=== PATIENT | male | born 1935 | race Caucasian/White ===

== ENCOUNTER 2020-11-30 05:31 | Emergency (ER) | payer MEDICARE ==
[~2020-11-30] VITALS: Ht 185.4 cm; Wt 113.4 kg
[2020-11-30] MEDS ORDERED: ONDANSETRON HCL INJ 2MG/ML 2ML 2 MG/ML VIAL IV STA (05:35)
[2020-11-30] MEDS ORDERED: FAMOTIDINE 20 MG/2 ML VIAL IV STA (05:35)
[2020-11-30] MEDS ORDERED: SODIUM CHLORIDE 0.9% 500ML 500 ML IV STA (05:36)
[2020-11-30] MEDS ORDERED: DICYCLOMINE HCL 20 MG/2 ML VIAL IM ONE (06:00)
[2020-11-30 06:09] LABS: BASOPHILS # (AUTO) 0.1 (0.0-0.1); BASOPHILS % 1.2 % (0.0-1.0); EOSINOPHILS # (AUTO) 0.1 (0.0-0.4); EOSINOPHILS % 1.6 % (0.0-6.0); HEMATOCRIT 42.5 % (38.2-49.6); HEMOGLOBIN 14.2 g/dL (14.0-18.0); LYMPHOCYTES # (AUTO) 1.2 (1.0-3.2); LYMPHOCYTES % 15.9 % (18.0-39.1); MEAN CORPUSCULAR HEMOGLOBIN 30.4 pg (28-32); MEAN CORPUSCULAR HGB CONC 33.4 g/dL (31-35); MONOCYTES # (AUTO) 0.7 (0.2-0.8); NEUTROPHILS # (AUTO) 5.4 (2.1-6.9); NEUTROPHILS % 69.9 % (38.7-80.0); PLATELET COUNT 209 x10e3/uL (140-360); RED BLOOD COUNT 4.67 x10e6/uL (4.3-5.7); RED CELL DISTRIBUTION WIDTH 13.5 % (11.7-14.4)
[2020-11-30 06:54] LABS: ALANINE AMINOTRANSFERASE 19 IU/L (0-55); ALBUMIN 4.1 g/dL (3.5-5.0); ALBUMIN/GLOBULIN RATIO 1.4 (0.8-2.0); ALKALINE PHOSPHATASE 69 IU/L (40-150); BLOOD UREA NITROGEN 20 mg/dL (7-26); BUN/CREATININE RATIO 19 (6-25); CARBON DIOXIDE 21 mmol/L (22-29); CHLORIDE 105 mmol/L (98-107); CREATININE, SERUM 1.07 mg/dL (0.72-1.25); EST GLOMERULAR FILTRATION RATE > 60 ML/MIN (60-); GLUCOSE 146 mg/dL (74-118); SODIUM 137 mmol/L (136-145)
[2020-11-30] MEDS ORDERED: ZOFRAN4 MG PO (07:06)
[2020-11-30 08:06] VITALS: BP 185/111
== END 2020-11-30 07:50 | disposition home or self-care (01) ==
LOC: ER 07:11
DX: R11.2 Nausea with vomiting, unspecified (principal); R14.3 Flatulence; I45.10 Unspecified right bundle-branch block; I44.0 Atrioventricular block, first degree
CPT/HCPCS: 36415; 80053; 83690; 84484; 85025; 93005; 96372; 99284; J0500; J2405; J7040

== ENCOUNTER → 2021-04-20 | Outpatient (CLI) | payer MEDICARE ==
[~2021-04-20] MED LIST: ZOFRAN4 MG PO
== END ==
LOC: MRI 12:07
PROVIDERS: ATTEND Family Medicine
DX: R42 Dizziness and giddiness (principal); R41.0 Disorientation, unspecified; R41.3 Other amnesia
CPT/HCPCS: 70551

== ENCOUNTER 2021-05-02 07:54 | Outpatient (RCR) | payer MEDICARE | END 2021-05-11 | LOC: PT 07:54 | PROVIDERS: ATTEND Family Medicine | DX: M62.81 Muscle weakness (generalized) (principal); R41.0 Disorientation, unspecified; R26.89 Other abnormalities of gait and mobility; Z91.81 History of falling; R29.6 Repeated falls ==

== ENCOUNTER → 2021-05-06 | Outpatient (CLI) | payer MEDICARE ==
[~2021-05-06] MED LIST changes: +GADOBENATE DIMEGLUMINE 1 ML IV ONE; +SODIUM CHLORIDE 0.9% 50ML 50 ML ONE
== END ==
LOC: MRI 12:14
PROVIDERS: ATTEND Family Medicine
DX: G93.9 Disorder of brain, unspecified (principal)
CPT/HCPCS: 70553; A9577

== ENCOUNTER → 2021-05-11 | Outpatient (RCR) | payer MEDICARE ==
[~2021-05-11] MED LIST changes: -GADOBENATE DIMEGLUMINE 1 ML IV ONE; -SODIUM CHLORIDE 0.9% 50ML 50 ML ONE
== END ==
LOC: PT 04-25 10:30
PROVIDERS: ATTEND Family Medicine
DX: R26.89 Other abnormalities of gait and mobility (principal); R42 Dizziness and giddiness; R41.0 Disorientation, unspecified; R41.3 Other amnesia

== ENCOUNTER 2021-05-25 11:00 | Outpatient (RCR) | payer MEDICARE | END 2021-06-11 | LOC: PT 11:00 | PROVIDERS: ATTEND Family Medicine | DX: R42 Dizziness and giddiness (principal); R26.89 Other abnormalities of gait and mobility; R41.0 Disorientation, unspecified; R41.3 Other amnesia ==

== ENCOUNTER → 2021-06-01 | Outpatient (CLI) | payer MEDICARE ==
[~2021-06-01] MED LIST changes: +IOPAMIDOL 370 MG/ML 200 ML INFUS..BTL INJ ONE; +SODIUM CHLORIDE 0.9% 50ML 50 ML ONE
[2021-06-03 13:28] LABS: CREATININE, SERUM 1.17 mg/dL (0.72-1.25); EST GLOMERULAR FILTRATION RATE > 60 ML/MIN (60-)
== END ==
LOC: CT 15:32
PROVIDERS: ATTEND Family Medicine
DX: I71.2 Thoracic aortic aneurysm, without rupture (principal)
CPT/HCPCS: 36415; 71275; 82565; Q9967

== ENCOUNTER 2021-06-30 13:00 | Outpatient (RCR) | payer MEDICARE ==
[~2021-06-30 13:00] MED LIST changes: -IOPAMIDOL 370 MG/ML 200 ML INFUS..BTL INJ ONE; -SODIUM CHLORIDE 0.9% 50ML 50 ML ONE
== END 2021-07-12 ==
LOC: PT 13:00
PROVIDERS: ATTEND Family Medicine
DX: R42 Dizziness and giddiness (principal); R41.0 Disorientation, unspecified; R41.3 Other amnesia

== ENCOUNTER 2023-09-10 14:41 | Outpatient (RCR) | payer MEDICARE | END 2023-09-11 | LOC: PT 14:41 | PROVIDERS: ATTEND Family Medicine | DX: H81.10 Benign paroxysmal vertigo, unspecified ear (principal); R26.2 Difficulty in walking, not elsewhere classified; Z91.81 History of falling ==

== ENCOUNTER 2023-09-25 13:46 | Outpatient (RCR) | payer MEDICARE | END 2023-10-11 | LOC: PT 13:46 | PROVIDERS: ATTEND Family Medicine | DX: H81.4 Vertigo of central origin (principal); R26.2 Difficulty in walking, not elsewhere classified; Z91.81 History of falling ==